=== PATIENT | female | born 1965 | race Caucasian/White ===

== ENCOUNTER 2019-09-03 14:25 | Emergency (ER) | payer OTHER ==
[~2019-09-03] VITALS: Ht 170.2 cm; Wt 72.6 kg
--- NOTE | 2019-09-03 15:13 | NUR ---
PT CAME IN C/O R FLANK PAIN X 4 DAYS. PT AAOX4, VSS, RBAETHING EVEN AND UNLABORED ON ROOM AIR W/ NAD NOTED. PT CONNECTED TO THE MONITOR AND POX
--- NOTE | 2019-09-03 15:14 | NUR ---
URINE COLLECTED AND SENT TO LAB
[2019-09-03] MEDS ORDERED: IBUPROFEN 400 MG TABLET ONE (15:35)
[2019-09-03] MEDS ORDERED: DIAZEPAM 5 MG TABLET ONE (15:35)
[2019-09-03] MEDS ORDERED: DIAZEPAM 10 MG TABLET PO ONE (16:00)
[2019-09-03] MEDS ORDERED: IBUPROFEN 400 MG TABLET PO ONE (16:00)
[2019-09-03] MEDS ORDERED: oxyCODONE/APAP (5/325 MG) 1 UDTAB TABLET ONE (16:39)
[2019-09-03] MEDS ORDERED: oxyCODONE/APAP (5/325 MG) 1 UDTAB TABLET PO ONE (17:00)
[2019-09-03 17:39] VITALS: BP 111/78
--- NOTE | 2019-09-03 17:39 | NUR ---
Patient discharged to home in stable condition. Written and verbal after care instructions given. Patient verbalizes understanding of instruction.
== END 2019-09-03 17:40 | disposition home or self-care (01) ==
LOC: ER 14:29
DX: M54.5 Low back pain (principal); J45.909 Unspecified asthma, uncomplicated; Z98.890 Other specified postprocedural states

== ENCOUNTER 2020-09-29 14:22 | Emergency (ER) | payer OTHER ==
[~2020-09-29] VITALS: Ht 165.1 cm; Wt 70.3 kg
[2020-09-29 14:27] VITALS: BP 108/63
[2020-09-29] MEDS ORDERED: CEPH250C PO (14:36)
[2020-09-29] MEDS ORDERED: HYDR453.3 TP (14:36)
== END 2020-09-29 14:47 | disposition home or self-care (01) ==
LOC: ER 14:29
DX: T80.62XA Other serum reaction due to vaccination, initial encounter (principal); L03.114 Cellulitis of left upper limb; J45.909 Unspecified asthma, uncomplicated; Z98.890 Other specified postprocedural states; Z79.899 Other long term (current) drug therapy

== ENCOUNTER 2020-10-18 22:45 | Emergency (ER) | payer OTHER ==
[~2020-10-18] VITALS: Ht 165.1 cm; Wt 69.9 kg
[~2020-10-18 22:45] MED LIST: CEPH250C PO; HYDR453.3 TP
[2020-10-18 22:50] VITALS: BP 109/70
[2020-10-18] MEDS ORDERED: CEPH250S PO (23:03)
== END 2020-10-18 23:10 | disposition home or self-care (01) ==
LOC: ER 22:58
DX: T80.62XA Other serum reaction due to vaccination, initial encounter (principal); L03.113 Cellulitis of right upper limb; J45.909 Unspecified asthma, uncomplicated; Z88.7 Allergy status to serum and vaccine; X58.XXXA Exposure to other specified factors, initial encounter; Z98.890 Other specified postprocedural states; Z79.899 Other long term (current) drug therapy